=== PATIENT | female | born 1960 | race African-American/Black ===

== ENCOUNTER 2016-10-07 18:36 | Emergency (ER) | payer OTHER ==
[~2016-10-07] VITALS: Ht 165.1 cm; Wt 67.0 kg
[2016-10-07] MEDS ORDERED: METHYLPREDNISOLONE SOD SUCC 125 MG/2 ML VIAL IV STA (20:59)
[2016-10-07] MEDS ORDERED: MAGNESIUM 2 G PREMIX 50 ML IV ONE (21:00)
[2016-10-07 21:13] LABS: BASOPHILS % 1.1 % (0.0-2.0); EOSINOPHILS % 1.9 % (0.0-5.0); HEMATOCRIT. 38.5 % (36.0-48.0); HEMOGLOBIN. 12.8 g/dL (12.0-16.0); LYMPHOCYTES % 39.6 % (20.0-50.0); MEAN CORPUSCULAR HEMOGLOBIN 28.4 pg (28.0-32.0); MEAN CORPUSCULAR HGB CONC 33.2 g/dL (31.0-37.0); MEAN CORPUSCULAR VOLUME 85.6 fL (81.0-99.0); MEAN PLATELET VOLUME 8.9 fl (7.4-10.4); MONOCYTES % 7.9 % (2.0-8.0); NEUTROPHILS % 49.5 % (40.0-76.0); PLATELET 182 x1000/uL (130-400); RED BLOOD CELL COUNT 4.49 mill/uL (4.2-5.4); RED CELL DISTRIBUTION WIDTH 13.9 % (11.6-14.6); WHITE BLOOD COUNT 5.6 x1000/uL (4.5-11.0)
[2016-10-07 21:17] LABS: CHLORIDE 106 mEq/L (98-107); INDEX HEMOLYSI 1 (1-3); INDEX ICTERIC 1 (1-4); INDEX LIPEMIC 1 (1-3)
[2016-10-07 21:18] LABS: INR 1.1; PROTHROMBIN TIME 11.4 sec
[2016-10-07 21:26] LABS: ALANINE AMINOTRANSFERASE 17 IU/L (13-61); ANION GAP 8; CALCIUM 8.6 mg/dL (8.5-10.1); CARBON DIOXIDE 31 mEq/L (21-32); UREA NITROGEN BLOOD 17 mg/dL (7-21); eGFR > 60 mL/min (>60)
[2016-10-07 22:45] VITALS: BP 132/70
== END 2016-10-07 23:48 | disposition home or self-care (01) ==
LOC: ER 18:37
DX: J45.901 Unspecified asthma with (acute) exacerbation (principal); Z88.0 Allergy status to penicillin; Z90.710 Acquired absence of both cervix and uterus; Z82.49 Family history of ischemic heart disease and other diseases of the circulatory system
CPT/HCPCS: 36415; 71010; 80053; 85025; 85610; 96365; 96375; 99285; J2930; J3475; Z7610

== ENCOUNTER 2018-09-10 17:56 | Emergency (ER) | payer OTHER ==
[~2018-09-10] VITALS: Ht 170.2 cm; Wt 67.0 kg
[2018-09-10 20:30] VITALS: BP 121/75
[2018-09-10] MEDS ORDERED: FLUORESCEIN SODIUM 1MG/STRIP OP ONE (20:30)
== END 2018-09-10 20:32 | disposition home or self-care (01) ==
LOC: ER 17:56
DX: H10.9 Unspecified conjunctivitis (principal); J45.909 Unspecified asthma, uncomplicated; Z91.040 Latex allergy status; Z88.0 Allergy status to penicillin; Z90.710 Acquired absence of both cervix and uterus; Z91.048 Other nonmedicinal substance allergy status
CPT/HCPCS: 99283